=== PATIENT | female | born 1945 | race Caucasian/White ===

== ENCOUNTER 2022-03-04 09:54 | Outpatient (CLI) | payer MEDICARE, BC, SELFPAY | END 2022-03-04 09:55 | disposition home or self-care (01) | PROVIDERS: PCP Internal Medicine; Visit Provider Internal Medicine Gastroenterology | DX: R13.10 Dysphagia, unspecified (principal); K44.9 Diaphragmatic hernia without obstruction or gangrene; R93.3 Abnormal findings on diagnostic imaging of other parts of digestive tract | CPT/HCPCS: 43235; J2250; J3010 ==